=== PATIENT | female | born 1965 | race Caucasian/White ===

== ENCOUNTER 2019-07-22 11:00 | Inpatient (IN) | payer OTHER ==
[~2019-07-22] VITALS: Ht 167.6 cm; Wt 77.3 kg
[2019-07-22 12:41] LABS: BASOPHILS 0.2 % (0-2); EOSINOPHILS 2.3 % (0-7); HEMATOCRIT 43.1 % (36.0-48.0); HEMOGLOBIN 14.4 g/dL (12-16); IMMATURE GRANULOCYTES 0.3 % (0-5); LYMPHOCYTES 27.8 % (15-50); MCH 33.2 pg (26.0-34.0); MCHC 33.4 g/dL (31.0-37.0); MCV 99.3 fL (80.0-100.0); MEAN PLATELET VOLUME 9.9 fL (7.4-10.4); MONOCYTES 4.8 % (2-11); NEUTROPHILS 64.6 % (40-80); PLATELET COUNT 178 10x3/uL (130-400); RBC 4.34 10x6/uL (4.00-5.40); RDW 13.9 % (11.5-14.5); WBC 11.7 10x3/uL (4.8-10.8)
[2019-07-22 12:53] LABS: CALC OSMOLALITY 273 mosm/kg (275-300); CALCIUM 8.8 mg/dL (8.5-10.1); CARBON DIOXIDE 26.3 mmol/L (21.0-32.0); CHLORIDE - SERUM 104 mmol/L (98-107); CREATININE - SERUM 0.7 mg/dL (0.6-1.3); GLUCOSE 107 mg/dL (74-106); POTASSIUM - SERUM 3.8 mmol/L (3.5-5.1); SODIUM 136 mmol/L (136-145); UREA NITROGEN 17 mg/dL (7-18); eGFR NON AFRICAN AMERICAN > 90 mL/min (90-120)
[2019-07-22 13:05] LABS: ALBUMIN 3.1 g/dL (3.4-5.0); ALKALINE PHOSPHATASE 98 U/L (30-120); ALT (SGPT) 16 U/L (10-68); BILIRUBIN - TOTAL 0.19 mg/dL (0.2-1.3); C-REACTIVE PROTEIN 2.2 mg/dL (0.0-0.9); CKMB 0.9 U/L (0.0-3.6); CREATINE KINASE 106 UL (21-215); PROTEIN - SERUM 7.6 g/dL (6.4-8.2)
[2019-07-22 14:30] VITALS: BP 107/64
[2019-07-22 14:46] LABS: BILIRUBIN NEGATIVE (NEGATIVE); GLUCOSE NEGATIVE (NEGATIVE); KETONE NEGATIVE (NEGATIVE); NITRITE NEGATIVE (NEGATIVE); UROBILINOGEN NORMAL (NORMAL)
[2019-07-22 16:00] VITALS: BP 113/69
--- NOTE | 2019-07-22 16:17 | NUR ---
REPORT TO RITIKA CLARK
--- NOTE | 2019-07-22 16:25 | NUR ---
TRANSPORTED TO ROOM #2103 WITH STRICT ISO PRECAUTIONS.
--- NOTE | 2019-07-22 16:45 | NUR ---
RECEIVED PT FROM ER. PT IS AAO AND UP AD SHANEL. RR EVEN AND UNLABORED ON RA. VSS AND WNL. PT DENIES ANY NEEDS AT THIS TIME. NO S/S OF DISTRESS NOTED. WILL CTM.
[2019-07-22 17:07] VITALS: BP 131/69; Ht 167.6 cm; Wt 77.3 kg
--- NOTE | 2019-07-22 19:44 | NUR ---
RECEIVED OUT IN [address] REQUESTING WATER. EDUCATED ON ISOLATION PROCEDURES. ALERT AND ORIENTED X4. UP AD SHANEL. IV TO RT FA SL. DENIES ANY NEEDS AT THIOS TIME.
--- NOTE | 2019-07-22 23:57 | NUR ---
REMAINS IN DROPLET ISOLATION R/T PRESUMTIVE COVID 19.
[2019-07-23 00:30] VITALS: BP 110/57
[2019-07-23 05:24] LABS: HEMOGLOBIN 13.1 g/dL (12-16); MCH 32.4 pg (26.0-34.0); MCHC 32.8 g/dL (31.0-37.0); MEAN PLATELET VOLUME 9.8 fL (7.4-10.4); PLATELET COUNT 170 10x3/uL (130-400); RBC 4.04 10x6/uL (4.00-5.40)
[2019-07-23 05:36] LABS: WBC 7.3 10x3/uL (4.8-10.8)
[2019-07-23 05:44] LABS: ALBUMIN 2.8 g/dL (3.4-5.0); ALKALINE PHOSPHATASE 88 U/L (30-120); ALT (SGPT) 14 U/L (10-68); BILIRUBIN - TOTAL 0.16 mg/dL (0.2-1.3); CALC OSMOLALITY 280 mosm/kg (275-300); CALCIUM 8.1 mg/dL (8.5-10.1); CARBON DIOXIDE 24.8 mmol/L (21.0-32.0); CHLORIDE - SERUM 106 mmol/L (98-107); CREATININE - SERUM 0.7 mg/dL (0.6-1.3); GLUCOSE 132 mg/dL (74-106); POTASSIUM - SERUM 3.8 mmol/L (3.5-5.1); SODIUM 139 mmol/L (136-145); UREA NITROGEN 15 mg/dL (7-18); eGFR NON AFRICAN AMERICAN > 90 mL/min (90-120)
[2019-07-23 06:21] LABS: EOSINOPHILS 1 % (0-7); LYMPHOCYTES 63 % (15-50); MONOCYTES 7 % (2-11); NEUTROPHILS 29 % (40-80); PLATELET ESTIMATE NORMAL
[2019-07-23 08:19] VITALS: BP 108/47
--- NOTE | 2019-07-23 09:47 | NUR ---
PATIENT RESTING IN BED WITH NO NEEDS VOICED, ALERT AND ORIENTED. SL TO RIGHT AC PATENT WITH DRESSING INTACT. CL IN REACH, DROPLET PRECAUTIONS USED.
--- NOTE | 2019-07-23 10:08 | NUR ---
ROCEPHIN STOPPED AT 1530 NS STOPPED AT 1528
[2019-07-23 11:22] VITALS: BP 109/62
--- NOTE | 2019-07-23 13:15 | NUR ---
PATIENT RESTING WITH NO NEEDS VOICED. CL IN REACH
[2019-07-23 16:58] VITALS: BP 113/68
--- NOTE | 2019-07-23 17:19 | NUR ---
PATIENT RESTING WITH NO NEEDS VOICED. CL IN REACH.
[2019-07-23 20:00] VITALS: BP 121/70
--- NOTE | 2019-07-23 22:06 | NUR ---
PT LYING IN BED AWAKE ALERT AD ORIENTED x4. NO SIGNS OR SYMPTOMS OF DISTRESS NOTED. REPIRATIONS EVEN AND UNLABORED. NO COMPLAINTS OF PAIN AT THIS TIME. DIET SPRITE AND NANCY CRAKERS GIVEN PER PT REQUEST. PT ENCOURAGED TO CALL FOR HELP WHEN NEEDED. CALL LIGHT WITH IN REACH AND BED IS IN LOWEST PSOTION. WILL CONTINUE TO MONITOR
[2019-07-24] VITALS: BP 118/66
--- NOTE | 2019-07-24 03:51 | NUR ---
PT SITTING UP IN BED AWAKE ALERT AND ORIENTED x4. NO SIGNS OF DISTRESS NOTED. RESPIRATIONS EVEN AND UNLABORED. CALL LIGHT WITH IN REACH. NO COMPLAINTS AT THIS TIME. CALL LIGHT WITH IN REACH WILL CONTINUE TO MONITOR
[2019-07-24 04:00] VITALS: BP 112/64
[2019-07-24 05:57] LABS: BASOPHILS 0.3 % (0-2); EOSINOPHILS 2.3 % (0-7); HEMATOCRIT 39.5 % (36.0-48.0); HEMOGLOBIN 12.9 g/dL (12-16); IMMATURE GRANULOCYTES 0.1 % (0-5); LYMPHOCYTES 49.9 % (15-50); MCH 32.3 pg (26.0-34.0); MCHC 32.7 g/dL (31.0-37.0); MCV 98.8 fL (80.0-100.0); MEAN PLATELET VOLUME 9.6 fL (7.4-10.4); MONOCYTES 6.9 % (2-11); NEUTROPHILS 40.5 % (40-80); PLATELET COUNT 189 10x3/uL (130-400); RDW 13.8 % (11.5-14.5); WBC 7.9 10x3/uL (4.8-10.8)
[2019-07-24] MEDS ORDERED: OMNICEF300 MG PO ×2 (07:27→08:54)
--- NOTE | 2019-07-24 08:30 | NUR ---
PT RESTING QUIETLY IN BED. PIV INFUSING NS @ 50. RR EVEN AND UNLABORED ON RA. PT DOES NOT HAVE NEEDS AT THIS TIME. SHE IS IN ISOLATION FOR POSSIBLE COVID19. BED LOCKED AND IN LOWEST POSITION, CALL LIGHT AND PHONE WITHIN REACH. WILL CTM
--- NOTE | 2019-07-24 11:00 | NUR ---
DC PAPERWORK GONE OVER WITH PT. INSTRUCTED PT TO SELF ISOLATE UNTIL SHE FURTHER HEARS FROM [facility]. SHE IS TO WEAR A MASK AND GO HOME. PIV REMOVED AND FULLY INTACT. ALL VALUBLES REMOVED FROM ROOM AND PT TAKIN TO ER ENTRANCE VIA WHEELCHAIR BY LANCE PAUL. SHE REPORTED TO ME THAT THERE WAS A BABY IN THE CAR, AND THE PT WAS ALREADY WANTING TO TAKE OFF HER MASK AND GO TO [facility]. BEVERLY INSTRUCTED PT AND FAMILY MEMEBER TO WEAR MASK.
--- NOTE | 2019-07-24 17:24 | MORECARE ---
CASE MANAGEMENT DISCHARGE SUMMARY PATIENT: RON HUFFMAN UNIT: [id number] ADM DATE: 07/22/19 AGE: 54 : 63 SEX: F ROOM/BED: D.2103 AUTHOR: OLGA,DOC PHYSICIAN: REFERRING PHYSICIAN: BRET LUIS MD DATE OF SERVICE: 07/24/19 Discharge Plan Patient Name: RON HUFFMAN Facility: [facility]:[place] : 1965 Planned Disposition: Home Anticipated Discharge Date: 07/24/19 Discharge Date: 07/24/2019 Expected LOS: 2 Initial Reviewer: [email or web address] Initial Review Date: 07/24/2019 Generated: 07/24/19 6:23 pm Comments DCP- Discharge Planning Updated by [email or web address]: Joshua Durán on 07/24/19 4:[address] Patient Name: RON HUFFMAN Admission Status: ER Accout number: [id number] Admission Date: 07-22-2019 : 1965 Admission Diagnosis: Attending: BRET LUIS Current LOS: 2 Anticipated DC Date: 07-24-2019 Planned Disposition: Home Primary Insurance: [employer] Discharge Planning Comments: CM MET WITH PT IN ROOM TO DISCUSS DISCHARGE PLANNING AND NEEDS. PT REPORTS LIVING AT HOME INDEPENDENTLY WITH HER ADULT DAUGHTER. PT HAS NO MEDICAL EQUIPMENT AND NO OUTSIDE SERVICES ASSISTING IN THE HOME. CM DISCUSSED AVAILABILITY OF HOME HEALTH, REHAB SERVICES AND MEDICAL EQUIPMENT. PT DENIES DISCHARGE NEEDS, REPORTS HER DAUGHTER WILL PICK HER UP FOR DISCHARGE HOME. LICENSED MORTGAGE LOAN OFFICER NURSE NOTIFED. Machine Operator Slitter Technician: Joshua Durán DCPIA - Discharge Planning Initial Assessment Updated by [email or web address]: Joshua Durán on 07/24/19 5:22 pm * Is the patient Alert and Oriented? Yes * How many steps to enter\exit or inside your home? * PCP DR. MORRELL * [facility] * Preadmission Environment Home with Family * ADLs Independent * Equipment None * Other Equipment NO MEDICAL EQUIPMENT PROVIDER PREFERENCE * List name and contact numbers for known caregivers / representatives who currently or will assist patient after discharge: NOE XIONG, TREY, * Verbal permission to speak to the caregivers and representatives has been obtained from the patient. N/A * Community resources currently utilized None * Please name any agencies selected above. NONE * Additional services required to return to the preadmission environment? No * Can the patient safely return to the preadmission environment? Yes * Has this patient been hospitalized within the prior 30 days at any hospital? No Patient Name: RON HUFFMAN Page [id number] at 1724 All edits/amendments must be made on the electronic document DICTATION DATE: 07/24/191722 BEHAVIORAL HEALTH ASSOCIATE: KIMBERLY 07/24/191722 RPT#: [id number] DC DATE:07/24/19 STATUS: DIS IN [facility] [address] [place] [address] END OF REPORT
== END 2019-07-24 11:51 | disposition home or self-care (01) | DRG 195 ==
LOC: D.ER 11:00 → D.M2 14:33
PROVIDERS: Family Medicine; ADMIT Legal Medicine; ATTEND Legal Medicine
DX: J18.9 Pneumonia, unspecified organism (principal); Z20.828 Contact with and (suspected) exposure to other viral communicable diseases; Z72.0 Tobacco use